=== PATIENT | male | born 1945 | race Caucasian/White ===

== ENCOUNTER 2019-12-07 05:37 | Inpatient (IN) ==
[2019-12-07] MEDS ORDERED: ceFAZolin 1,000 MG VIAL ONE (05:53)
[2019-12-07] MEDS ORDERED: VANCOMYCIN 1,000 MG VIAL ONE (05:53)
[2019-12-07] MEDS ORDERED: FAMOTIDINE 20 MG TABLET ONE (05:54)
[2019-12-07] MEDS ORDERED: GABAPENTIN 400 MG CAPSULE ONE (05:54)
[2019-12-07] MEDS ORDERED: ACETAMINOPHEN 500 MG TABLET ONE (05:54)
[2019-12-07] MEDS ORDERED: FAMOTIDINE 20 MG TABLET PO ONE (06:00)
[2019-12-07] MEDS ORDERED: LACTATED RINGERS 1,000 ML IV SCH (06:00)
[2019-12-07] MEDS ORDERED: GABAPENTIN 400 MG CAPSULE PO ONE (06:00)
[2019-12-07] MEDS ORDERED: ACETAMINOPHEN 500 MG TABLET PO ONE (06:00)
[2019-12-07] MEDS ORDERED: BUPIVACAINE MPF 0.25% 30 ML VIAL ONE (06:33)
[2019-12-07] MEDS ORDERED: DEXAMETHASONE 4 MG/1 ML VIAL ONE ×2 (06:34→08:57)
[2019-12-07] MEDS ORDERED: BUPIVACAINE SPINAL 0.75% 2 ML AMP SPINAL ONE (06:36)
[2019-12-07] MEDS ORDERED: MORPHINE 10 MG/10 ML VIAL ONE (06:36)
[2019-12-07] MEDS ORDERED: DEXMEDETOMIDINE 200 MCG/2 ML VIAL IV ONE (06:40)
[2019-12-07] MEDS ORDERED: ceFAZolin 1,000 MG in SYRINGE 1 EACH IV ONE (07:00)
[2019-12-07] MEDS ORDERED: VANCOMYCIN INJ 1,000 MG in SODIUM CHLORIDE 0.9% 250 ML IV ONE (07:00)
[2019-12-07] MEDS ORDERED: TEMAZEPAM 7.5 MG CAPSULE PO PRN (07:06)
[2019-12-07] MEDS ORDERED: diphenhydrAMINE CAP 25 MG CAPSULE PO PRN (07:06)
[2019-12-07] MEDS ORDERED: BISACODYL 10 MG SUPP RECTAL PRN (07:06)
[2019-12-07] MEDS ORDERED: oxyCODONE/ACETAMINOPHEN 5-325 MG TABLET PO PRN (07:06)
[2019-12-07] MEDS ORDERED: LACTULOSE 20 GM/30 ML UDCUP PO PRN (07:06)
[2019-12-07] MEDS ORDERED: ONDANSETRON 4 MG/2 ML VIAL IV PRN (07:06)
[2019-12-07] MEDS ORDERED: PROMETHAZINE 25 MG/1 ML VIAL IM PRN (07:06)
[2019-12-07] MEDS ORDERED: GLUCAGON 1 MG VIAL IM PRN (07:09)
[2019-12-07] MEDS ORDERED: DEXTROSE 50% 25 GM/50 ML VIAL IV PRN (07:09)
[2019-12-07] MEDS ORDERED: LIDOCAINE 2% 5 ML VIAL ONE (08:56)
[2019-12-07] MEDS ORDERED: LACTATED RINGERS 1,000 ML IV ONE (08:57)
[2019-12-07] MEDS ORDERED: KETAMINE 500 MG/10 ML VIAL ONE (08:57)
[2019-12-07] MEDS ORDERED: ONDANSETRON 4 MG/2 ML VIAL ONE (08:57)
[2019-12-07] MEDS: INSULIN REGULAR 100 UNIT/ML SUBCUT SCH ×4 (09:04→22:12)
[2019-12-07] MEDS ORDERED: MIDAZOLAM 2 MG/2 ML VIAL ONE (09:57)
[2019-12-07] MEDS ORDERED: fentaNYL 100 MCG/2 ML VIAL ONE (09:57)
[2019-12-07] MEDS: MULTIVITAMIN (CENTRUM) TABLET PO SCH (10:13)
[2019-12-07] MEDS: carvediloL 6.25 MG TABLET PO SCH ×2 (10:13→21:54)
[2019-12-07] MEDS: DOCUSATE SODIUM 100 MG CAPSULE PO SCH ×2 (10:13→21:54)
[2019-12-07] MEDS: ASPIRIN EC 81 MG TABLET PO SCH (10:13)
[2019-12-07] MEDS: OMEGA 3 ACID ETHYL ESTERS 1 GM CAPSULE PO SCH ×2 (10:13→21:55)
[2019-12-07] MEDS: FENOFIBRATE 160 MG TABLET PO SCH (10:14)
[2019-12-07] MEDS: VITAMIN E 400 UNIT CAPSULE PO SCH (10:14)
[2019-12-07] MEDS: INSULIN ASPART PROTAMINE/ASPART 70/30 100 UNIT/ML SUBCUT SCH ×2 (12:45→22:13)
[2019-12-07] MEDS: ceFAZolin 2,000 MG in PREMIX 1 EACH IV SCH ×2 (15:34→22:11)
[2019-12-07] MEDS: oxyCODONE/ACETAMINOPHEN 5-325 MG TABLET PO PRN ×2 (15:35→21:55)
[2019-12-07] MEDS: SERTRALINE 50 MG TABLET PO SCH (21:55)
[2019-12-07] MEDS: ATORVASTATIN 40 MG TABLET PO SCH (21:55)
[2019-12-07] MEDS: CLOPIDOGREL 75 MG TABLET PO SCH (21:55)
[2019-12-07] MEDS: lisinopriL 10 MG TABLET PO SCH (21:55)
[2019-12-08 04:42] LABS: Basophils % 0.4 % (0.0-0.8); Eosinophils # 0.2 10*3/uL (0.0-0.87); Eosinophils % 1.7 % (0.00-10.9); Hematocrit 28.6 VOL% (42.0-52.0); Immature Granulocytes % 0.5 %; Immature Granulocytes Absolute 0.06 #; Lymphocytes # 0.9 10*3/uL (1.4-4.0); Lymphocytes % 7.8 % (21.2-54.2); Mean Corpuscular Volume 97.6 FL (87-102); Mean Platelet Volume 10.2 FL (9.6-12.0); Monocytes % 10.2 % (1.7-12.7); Neutrophils % 79.4 % (38.7-73.9); Platelet Count 153 T/CUMM (130-400); Red Blood Count 2.93 MC/CUMM (3.8-5.5); Red Cell Distribution Width 12.5 % (9.3-17.3); White Blood Count 11.3 T/CUMM (4-12)
[2019-12-08 05:10] LABS: Calcium 8.3 MG/DL (8.5-10.1); Osmolality,Calculated 282.8 MOS/KG (273-304)
[2019-12-08] MEDS: FONDAPARINUX 2.5 MG/0.5 ML SYRINGE SUBCUT SCH (06:15)
[2019-12-08] MEDS: INSULIN ASPART PROTAMINE/ASPART 70/30 100 UNIT/ML SUBCUT SCH ×2 (08:29→21:04)
[2019-12-08] MEDS: carvediloL 6.25 MG TABLET PO SCH ×2 (08:30→21:00)
[2019-12-08] MEDS: MULTIVITAMIN (CENTRUM) TABLET PO SCH (08:30)
[2019-12-08] MEDS: ASPIRIN EC 81 MG TABLET PO SCH (08:30)
[2019-12-08] MEDS: INSULIN REGULAR 100 UNIT/ML SUBCUT SCH ×4 (08:30→21:03)
[2019-12-08] MEDS: VITAMIN E 400 UNIT CAPSULE PO SCH (08:30)
[2019-12-08] MEDS: FENOFIBRATE 160 MG TABLET PO SCH (08:30)
[2019-12-08] MEDS: OMEGA 3 ACID ETHYL ESTERS 1 GM CAPSULE PO SCH ×2 (08:30→21:00)
[2019-12-08] MEDS: DOCUSATE SODIUM 100 MG CAPSULE PO SCH ×2 (08:30→21:00)
[2019-12-08] MEDS: oxyCODONE/ACETAMINOPHEN 5-325 MG TABLET PO PRN ×3 (08:31→20:26)
[2019-12-08] MEDS: MORPHINE 10 MG/1 ML VIAL IV PRN ×3 (11:56→23:34)
[2019-12-08] MEDS: ATORVASTATIN 40 MG TABLET PO SCH (21:00)
[2019-12-08] MEDS: lisinopriL 10 MG TABLET PO SCH (21:01)
[2019-12-08] MEDS: SERTRALINE 50 MG TABLET PO SCH (21:01)
[2019-12-08] MEDS: CLOPIDOGREL 75 MG TABLET PO SCH (21:01)
[2019-12-09] MEDS: oxyCODONE/ACETAMINOPHEN 5-325 MG TABLET PO PRN ×3 (05:30→16:08)
[2019-12-09] MEDS: FONDAPARINUX 2.5 MG/0.5 ML SYRINGE SUBCUT SCH (06:19)
[2019-12-09] MEDS: INSULIN REGULAR 100 UNIT/ML SUBCUT SCH ×4 (09:35→21:11)
[2019-12-09] MEDS: carvediloL 6.25 MG TABLET PO SCH ×2 (09:35→21:14)
[2019-12-09] MEDS: INSULIN ASPART PROTAMINE/ASPART 70/30 100 UNIT/ML SUBCUT SCH ×2 (09:35→21:12)
[2019-12-09] MEDS: FENOFIBRATE 160 MG TABLET PO SCH (09:36)
[2019-12-09] MEDS: ASPIRIN EC 81 MG TABLET PO SCH (09:36)
[2019-12-09] MEDS: DOCUSATE SODIUM 100 MG CAPSULE PO SCH ×2 (09:36→21:13)
[2019-12-09] MEDS: VITAMIN E 400 UNIT CAPSULE PO SCH (09:36)
[2019-12-09] MEDS: MULTIVITAMIN (CENTRUM) TABLET PO SCH (09:36)
[2019-12-09] MEDS: OMEGA 3 ACID ETHYL ESTERS 1 GM CAPSULE PO SCH ×2 (09:36→21:14)
[2019-12-09] MEDS: MAGNESIUM HYDROXIDE SUSP 30 ML UDCUP PO PRN (11:44)
[2019-12-09] MEDS: MORPHINE 10 MG/1 ML VIAL IV PRN ×2 (11:45→19:14)
[2019-12-09] MEDS: CLOPIDOGREL 75 MG TABLET PO SCH (21:13)
[2019-12-09] MEDS: SERTRALINE 50 MG TABLET PO SCH (21:14)
[2019-12-09] MEDS: ATORVASTATIN 40 MG TABLET PO SCH (21:14)
[2019-12-09] MEDS: lisinopriL 10 MG TABLET PO SCH (21:14)
[2019-12-10] MEDS: MORPHINE 10 MG/1 ML VIAL IV PRN (01:47)
[2019-12-10] MEDS: oxyCODONE/ACETAMINOPHEN 5-325 MG TABLET PO PRN ×2 (04:50→09:21)
[2019-12-10] MEDS: FONDAPARINUX 2.5 MG/0.5 ML SYRINGE SUBCUT SCH (05:40)
[2019-12-10] MEDS: INSULIN ASPART PROTAMINE/ASPART 70/30 100 UNIT/ML SUBCUT SCH (09:19)
[2019-12-10] MEDS: INSULIN REGULAR 100 UNIT/ML SUBCUT SCH ×2 (09:19→11:44)
[2019-12-10] MEDS: MAGNESIUM HYDROXIDE SUSP 30 ML UDCUP PO PRN (09:20)
[2019-12-10] MEDS: OMEGA 3 ACID ETHYL ESTERS 1 GM CAPSULE PO SCH (09:20)
[2019-12-10] MEDS: ASPIRIN EC 81 MG TABLET PO SCH (09:21)
[2019-12-10] MEDS: DOCUSATE SODIUM 100 MG CAPSULE PO SCH (09:21)
[2019-12-10] MEDS: VITAMIN E 400 UNIT CAPSULE PO SCH (09:21)
[2019-12-10] MEDS: FENOFIBRATE 160 MG TABLET PO SCH (09:21)
[2019-12-10] MEDS: MULTIVITAMIN (CENTRUM) TABLET PO SCH (09:21)
[2019-12-10] MEDS: carvediloL 6.25 MG TABLET PO SCH (09:21)
[2019-12-10 11:58] VITALS: BP 108/46
== END 2019-12-10 13:00 | disposition home health service (06) | DRG 470 ==
LOC: N.OR 05:37 → N.SDSINP 05:37 → N.3E 07:06
PROVIDERS: ADMIT Orthopaedic Surgery; ATTEND Orthopaedic Surgery